=== PATIENT | female | born 1975 | race Native Hawaiian/Other Pacific Islander ===

== ENCOUNTER 2016-12-15 09:16 | Outpatient (CLI) | payer BC | END 2016-12-15 10:45 | disposition home or self-care (01) | LOC: MRI 09:16 | DX: R51 Headache (principal) ==

== ENCOUNTER 2017-10-25 09:52 | Emergency (ER) | payer OTHER ==
[~2017-10-25] VITALS: Ht 162.6 cm; Wt 62.6 kg
[2017-10-25 11:05] VITALS: BP 130/78; TEMP 98.2
== END 2017-10-25 11:05 | disposition home or self-care (01) ==
LOC: ED 09:52
DX: S80.12XA Contusion of left lower leg, initial encounter (principal); W22.8XXA Striking against or struck by other objects, initial encounter
CPT/HCPCS: 99282

== ENCOUNTER 2018-03-22 08:11 | Outpatient (CLI) | payer OTHER | END 2018-03-22 22:47 | disposition home or self-care (01) | LOC: MAMMO 08:11 | DX: Z12.31 Encounter for screening mammogram for malignant neoplasm of breast (principal) ==

== ENCOUNTER 2018-04-24 14:34 | Outpatient (CLI) | payer OTHER | END 2018-04-24 22:15 | disposition home or self-care (01) | LOC: LAB 14:34 | DX: N39.0 Urinary tract infection, site not specified (principal) | CPT/HCPCS: 87077; 87086; 87088; 87186 ==

== ENCOUNTER 2019-04-30 01:45 | Emergency (ER) | payer OTHER ==
[~2019-04-30] VITALS: Ht 162.6 cm; Wt 62.6 kg
[2019-04-30] MEDS ORDERED: SUMATRIPTAN50 MG PO (02:06)
[2019-04-30 03:00] VITALS: BP 157/79; TEMP 98
== END 2019-04-30 03:00 | disposition home or self-care (01) ==
LOC: ED 01:45
DX: G43.909 Migraine, unspecified, not intractable, without status migrainosus (principal)
CPT/HCPCS: 96372; 99284; J1200; J1885; J2405

== ENCOUNTER 2019-06-17 16:04 | Emergency (ER) | payer OTHER ==
[~2019-06-17] VITALS: Ht 162.6 cm; Wt 65.8 kg
[2019-06-17 16:04] VITALS: BP 111/75; TEMP 97.7
[~2019-06-17 16:04] MED LIST: SUMATRIPTAN50 MG PO
[2019-06-17 16:36] LABS: PLATELET COUNT 233 K/uL (152-353)
[2019-06-17 16:38] LABS: POTASSIUM 3.3 mmol/L (3.6-5.2); SODIUM 139 mmol/L (136-145)
[2019-06-17 16:45] LABS: PARTIAL THROMBOPLASTIN TIME 21.4 SECONDS (24.5-33.6)
== END 2019-06-17 18:29 | disposition home or self-care (01) ==
LOC: ED 16:12
PROVIDERS: Hospitalist
DX: R55 Syncope and collapse (principal); E87.6 Hypokalemia; W18.39XA Other fall on same level, initial encounter; Y92.512 Supermarket, store or market as the place of occurrence of the external cause
CPT/HCPCS: 80053; 80320; 81000; 81025; 82550; 83880; 84484; 85027; 85379; 85610; 85730; 93005; 96360; 96361; 99284

== ENCOUNTER 2019-08-10 15:32 | Emergency (ER) | payer OTHER ==
[~2019-08-10] VITALS: Ht 162.6 cm; Wt 65.8 kg
[2019-08-10 15:57] VITALS: TEMP 99.4
[2019-08-10 16:56] LABS: PLATELET COUNT 199 K/uL (152-353)
[2019-08-10 17:06] LABS: POTASSIUM 3.9 mmol/L (3.6-5.2)
[2019-08-10 18:10] VITALS: BP 136/78
== END 2019-08-10 18:10 | disposition home or self-care (01) ==
LOC: ED 15:32
PROVIDERS: Family Medicine
DX: J06.9 Acute upper respiratory infection, unspecified (principal); Z20.828 Contact with and (suspected) exposure to other viral communicable diseases
CPT/HCPCS: 80053; 81000; 85027; 87502; 87635; 87651; 99283; U0002

== ENCOUNTER 2020-03-21 11:35 | Emergency (ER) | payer OTHER ==
[~2020-03-21] VITALS: Ht 162.6 cm; Wt 65.8 kg
[2020-03-21 12:04] LABS: PLATELET COUNT 203 K/uL (152-353)
[2020-03-21 12:14] LABS: POTASSIUM 3.6 mmol/L (3.6-5.2)
[2020-03-21 13:20] VITALS: BP 128/84; TEMP 98.2
== END 2020-03-21 13:20 | disposition home or self-care (01) ==
LOC: ED 11:35
PROVIDERS: Family Medicine
DX: I10 Essential (primary) hypertension (principal)
CPT/HCPCS: 80053; 81000; 85027; 99283

== ENCOUNTER 2022-01-18 15:56 | Outpatient (CLI) | payer BC | END 2022-01-18 20:11 | disposition home or self-care (01) | LOC: RAD 15:56 | PROVIDERS: ATTEND Internal Medicine | DX: R05.3 Chronic cough (principal) ==